=== PATIENT | male | born 1940 | race Caucasian/White ===

== ENCOUNTER 2018-03-17 22:27 | Outpatient (REF) | payer MEDICARE, SELFPAY ==
[2018-03-17 23:09] LABS: Abs Immature Grans 0.02 k/cumm (0.0-0.09); Absolute Basophil Count 0.03 k/cumm (0.0-0.2); Absolute Eosinophil Count 0.08 k/cumm (0.0-0.7); Absolute Lymphocyte Count 0.96 k/cumm (1.2-3.4); Absolute Monocyte Count 0.77 k/cumm (0.11-0.7); Absolute Neutrophil Count 5.35 k/cumm (1.2-6.7); Basophils % 0.4; Eosinophils % 1.1; HCT 41.3 % (40.0-50.0); HGB 13.2 g/dL (13.5-17.5); Immature Grans % 0.3; Lymphocytes % 13.3; Mean Corpuscular Hemoglobin 31.7 pg (27.0-33.0); Mean Corpuscular Volume 99.3 fL (80-95); Mean Platelet Volume 11.5 fL (8.0-11.0); Monocytes % 10.7; Neutrophils % 74.2; Platelet Count 266 x1000/uL (130-400); RBC 4.16 m/cumm (4.50-6.00); White Blood Cell Count 7.21 k/cumm (4.4-10.8)
[2018-03-17 23:31] LABS: ALT 13 U/L (12-78); AST 19 U/L (15-37); Albumin 3.5 g/dL (3.4-5.0); Alkaline Phosphatase 80 U/L (46-116); Bilirubin, Direct 0.05 mg/dL (0.00-0.20); Bilirubin, Total 0.2 mg/dL (0.2-1.0); Total Protein 6.8 g/dL (6.4-8.2)
== END 2018-03-17 22:28 ==
LOC: NCHCN 22:27
PROVIDERS: PCP Internal Medicine; Visit Provider Internal Medicine
DX: R63.4 Abnormal weight loss (principal); F03.91 Unspecified dementia, unspecified severity, with behavioral disturbance; F33.9 Major depressive disorder, recurrent, unspecified; R27.9 Unspecified lack of coordination
CPT/HCPCS: 80076; 85025

== ENCOUNTER 2018-05-29 22:31 | Outpatient (REF) | payer MEDICARE, SELFPAY ==
[2018-05-29 23:22] LABS: ALT 18 U/L (12-78); AST 14 U/L (15-37); Albumin 3.1 g/dL (3.4-5.0); Alkaline Phosphatase 64 U/L (46-116); BUN 30 mg/dL (7-18); Bilirubin, Total 0.2 mg/dL (0.2-1.0); CREATININE 0.79 mg/dL (0.70-1.30); Calcium 8.8 mg/dL (8.5-10.1); Chloride 108 mmol/L (98-107); Glucose 131 mg/dL (70-100); Sodium 145 mmol/L (136-145); Total Protein 5.8 g/dL (6.4-8.2)
== END 2018-05-29 22:51 ==
LOC: NCHCN 22:31
PROVIDERS: PCP Internal Medicine; Visit Provider Family Medicine
DX: M62.81 Muscle weakness (generalized) (principal); G20 Parkinson's disease; F33.8 Other recurrent depressive disorders; F22 Delusional disorders
CPT/HCPCS: 80053